=== PATIENT | male | born 1990 | race Caucasian/White ===

== ENCOUNTER → 2017-04-24 | Outpatient (REF) | payer OTHER ==
[2017-04-24 10:58] LABS: IMMOTILITY 55 %; NON PROGRESSIVE MOTILITY (c) 9 %; PROGRESSIVE MOTILITY (a) 36 % (>=32); TOTAL MOTILITY 45 % (>=40)
[2017-04-24 10:59] LABS: % NORMAL FORMS 7 % (>=4); SPERM# 181.6 M/Ejac (33-46); TOTAL FUNCTIONAL 11.2 M/Ejac.; TOTAL PROGRESSIVE SPERM 65.6 M/Ejac.
== END ==
LOC: M LAB REF 10:43
PROVIDERS: ATTEND Physician Assistant
DX: Z30.8 Encounter for other contraceptive management (principal)

== ENCOUNTER 2018-11-25 06:41 | Emergency (ER) | payer OTHER ==
[2018-11-25 07:22] LABS: HEMATOCRIT 48.6 % (42.0-52.0); HEMOGLOBIN 17.3 g/dl (13.5-17.5); MEAN CORPUSCULAR HEMOGLOBIN 29.4 pg (27.0-33.0); MEAN CORPUSCULAR HGB CONC 35.6 g/dl (32.0-36.5); MEAN CORPUSCULAR VOLUME 82.7 fl (80.0-96.0); PLATELET COUNT, AUTOMATED 254 10^3/uL (150-450); RED BLOOD COUNT 5.88 10^6/uL (4.30-6.10)
[2018-11-25 07:41] LABS: AMPHETAMINES LEVEL URINE NEGATIVE (NEGATIVE); BARBITURATES URINE NEGATIVE (NEGATIVE); BENZODIAZEPINES URINE NEGATIVE (NEGATIVE); CANNABINOIDS URINE NEGATIVE (NEGATIVE); COCAINE METABOLITE URINE NEGATIVE (NEGATIVE); METHADONE URINE NEGATIVE (NEGATIVE); OPIATES URINE NEGATIVE (NEGATIVE); PHENCYCLIDINE URINE NEGATIVE (NEGATIVE)
[2018-11-25 08:22] LABS: ACETAMINOPHEN LEVEL < 2.0 UG/ML (10.0-30.0); ALBUMIN 4.2 GM/DL (3.2-5.2); ALT/SGPT 37 U/L (12-78); BILIRUBIN,DIRECT 0.2 MG/DL (0.0-0.2); BILIRUBIN,TOTAL 0.5 MG/DL (0.2-1.0); BLOOD UREA NITROGEN 12 MG/DL (7-18); CALCIUM LEVEL 9.3 MG/DL (8.5-10.1); CARBON DIOXIDE LEVEL 27 MEQ/L (21-32); CHLORIDE LEVEL 108 MEQ/L (98-107); CREATININE FOR GFR 1.11 MG/DL (0.70-1.30); ETHYL ALCOHOL (ETHANOL) 0.003 % (0.000-0.010); GLOMERULAR FILTRATION RATE > 60.0 (>60); GLUCOSE, FASTING 135 MG/DL (70-100); POTASSIUM SERUM 4.1 MEQ/L (3.5-5.1); SALICYLATE LEVEL < 1.7 MG/DL (5.0-30.0); SODIUM LEVEL 139 MEQ/L (136-145); TOTAL PROTEIN 7.4 GM/DL (6.4-8.2)
[2018-11-25 09:36] VITALS: BP 141/81
== END 2018-11-25 09:40 | disposition home or self-care (01) ==
LOC: M ED 06:41
DX: F32.9 Major depressive disorder, single episode, unspecified (principal); F43.0 Acute stress reaction
CPT/HCPCS: 80048; 80076; 80307; 84443; 85027; 99284; G0480